=== PATIENT | male | born 1975 | race Caucasian/White ===

== ENCOUNTER 2018-09-20 23:42 | Inpatient (IN) | payer OTHER ==
[2018-09-21] MEDS ORDERED: NACL 0.9% 3 ML SYG IV (02:00)
[2018-09-21] MEDS ORDERED: LORAZEPAM 0.5 MG TAB PEG (02:00)
[2018-09-21] MEDS ORDERED: ONDANSETRON 4 MG INJ IV (02:00)
[2018-09-21] MEDS ORDERED: ALBUTEROL/IPRATROPIUM (NEB) 3 ML AMP HHN (02:00)
[2018-09-21] MEDS ORDERED: ACETAMINOPHEN 325 MG TAB PEG (02:00)
[2018-09-21] MEDS ORDERED: GLUCOSE GEL 15 GRAM TUBE PO ×2 (04:00)
[2018-09-21] MEDS ORDERED: GLUCAGON 1 MG INJ IM (04:00)
[2018-09-21] MEDS ORDERED: GLUCOSE GEL 15 GRAM TUBE BUCCAL (04:00)
[2018-09-21] MEDS ORDERED: DEXTROSE 50% 50 ML SYRINGE IV ×2 (04:00)
[2018-09-21] MEDS: SOD CHLORIDE 0.9% 1,000 ML IV (04:03)
[2018-09-21] MEDS: INSULIN ASPART [NOVOLOG] 3 ML PEN SC ×3 (06:00→17:52)
[2018-09-21] MEDS: LANSOPRAZOLE 30 MG CAP PEG ×2 (06:04→17:45)
[2018-09-21] MEDS: LEVOTHYROXINE 25 MCG TAB PEG (06:04)
[2018-09-21 06:05] LABS: ADD MAN DIFF? NO
[2018-09-21 06:19] LABS: BASOPHIL # 0.1 10^3/ul (0.0-0.1); BASOPHILS % 0.7 % (0.0-2.0); EOSINOPHILS # 0.4 10^3/ul (0.0-0.5); EOSINOPHILS % 4.1 % (0.0-7.0); HEMOGLOBIN 9.6 g/dl (14.0-18.0); LYMPHOCYTES # 2.4 10^3/ul (0.8-2.9); LYMPHOCYTES % 26.3 % (15.0-51.0); MEAN CORPUSCULAR HEMOGLOBIN 28.8 pg (29.0-33.0); MEAN CORPUSCULAR HGB CONC 33.1 g/dl (32.0-37.0); MEAN CORPUSCULAR VOLUME 87.1 fl (82.0-101.0); MEAN PLATELET VOLUME 9.6 fl (7.4-10.4); MONOCYTE # 1.1 10^3/ul (0.3-0.9); MONOCYTES % 11.4 % (0.0-11.0); NEUTROPHIL # 5.2 10^3/ul (1.6-7.5); NEUTROPHILS % 56.6 % (39.0-77.0); PLATELET COUNT 234 10^3/UL (140-415); RED BLOOD COUNT 3.33 10^6/ul (4.70-6.10); RED CELL DISTRIBUTION WIDTH 14.4 % (11.5-14.5)
[2018-09-21 06:19] LABS: WHITE BLOOD COUNT 9.2 10^3/ul (4.8-10.8)
[2018-09-21 06:41] LABS: ALANINE AMINOTRANSFERASE 25 IU/L (13-69); ALKALINE PHOSPHATASE 130 IU/L (42-121); ANION GAP 9 (5-13); ASPARTATE AMINO TRANSFERASE 12 IU/L (15-46); BILIRUBIN,INDIRECT 0.4 mg/dl (0-1.1); BILIRUBIN,TOTAL 0.4 mg/dl (0.2-1.3); BLOOD UREA NITROGEN 21 mg/dl (7-20); CALCIUM 8.6 mg/dl (8.4-10.2); CARBON DIOXIDE 28 mmol/L (21-31); CHLORIDE 110 mmol/L (97-110); CHOL/HDL RATIO 8.5 RATIO; CHOLESTEROL 102 mg/dl (100-200); CREATININE 1.09 mg/dl (0.61-1.24); Estimated GFR > 60 mL/min (>60); GLUCOSE 95 mg/dl (70-220); HDL CHOLESTEROL 12 mg/dl (27-67); LDL CHOLESTEROL,CALCULATED 49 mg/dl; MAGNESIUM 2.3 mg/dl (1.7-2.5); POTASSIUM 3.8 mmol/L (3.5-5.1); SODIUM 147 mmol/L (135-144); TOTAL PROTEIN 6.3 g/dl (6.1-8.1); TRIGLYCERIDES 205 mg/dl (0-149)
[2018-09-21 07:03] LABS: HEMOGLOBIN A1C 6.1 % (0-5.9)
[2018-09-21 08:06] LABS: ADD UMIC YES; UR ASCORBIC ACID 40 mg/dL (NEGATIVE); UR BACTERIA FEW /HPF (NONE SEEN); UR BILIRUBIN (Dip) NEGATIVE (NEGATIVE); UR BLOOD (Dip) NEGATIVE (NEGATIVE); UR CLARITY SLIGHTLY CLOUDY (CLEAR); UR COLOR YELLOW (YELLOW); UR GLUCOSE (Dip) 1+ mg/dL (NEGATIVE); UR KETONES (Dip) NEGATIVE (NEGATIVE); UR LEUKOCYTE ESTERASE (Dip) TRACE Leu/ul (NEGATIVE); UR NITRITE (Dip) NEGATIVE (NEGATIVE); UR RBC 12 /HPF (0-5); UR SPECIFIC GRAVITY (Dip) 1.017 (1.003-1.030); UR SQUAMOUS EPITHELIAL CELL FEW /HPF (FEW); UR TOTAL PROTEIN (Dip) 3+ mg/dl (NEGATIVE); UR UROBILINOGEN (Dip) NEGATIVE (NEGATIVE); UR WBC 35 /HPF (0-5)
[2018-09-21] MEDS: INSULIN GLARGINE [LANTus] (100 UNITS/ML) SYG SC (09:00)
[2018-09-21] MEDS ORDERED: INSULIN GLARGINE [LANtus] 3 ML PEN SC (09:00)
[2018-09-21] MEDS ORDERED: NON-FORMULARY/PATIENT OWN MED (Omeprazole* 20 MG) PEG (09:00)
[2018-09-21] MEDS: HEPARIN 5,000 UNIT/1 ML VIAL SC ×2 (09:00→21:25)
[2018-09-21] MEDS: MEROPENEM 1 GM/50 ML IVPB ×2 (09:15→21:10)
[2018-09-21] MEDS: AMLODIPINE 10 MG TAB PEG (09:17)
[2018-09-21] MEDS: POLYETHYLENE GLYCOL 17 GM PACKET PEG (09:17)
[2018-09-21] MEDS: LEVETIRACETAM (100 MG/ML) 5ML CUP PEG ×2 (09:17→21:10)
[2018-09-21] MEDS: traMADol 50 MG TAB PEG ×3 (09:18→21:13)
[2018-09-21] MEDS: ATORVASTATIN 10 MG TAB PEG (21:10)
[2018-09-22] MEDS: INSULIN ASPART [NOVOLOG] 3 ML PEN SC ×4 (01:09→17:55)
[2018-09-22] MEDS: ACCU-CHEK XX (02:00)
[2018-09-22] MEDS: LANSOPRAZOLE 30 MG CAP PEG (05:32)
[2018-09-22] MEDS: LEVOTHYROXINE 25 MCG TAB PEG (06:47)
[2018-09-22] MEDS: HEPARIN 5,000 UNIT/1 ML VIAL SC (09:00)
[2018-09-22] MEDS: POLYETHYLENE GLYCOL 17 GM PACKET PEG (09:00)
[2018-09-22] MEDS: INSULIN GLARGINE [LANTus] (100 UNITS/ML) SYG SC (09:00)
[2018-09-22] MEDS: traMADol 50 MG TAB PEG ×3 (09:07→20:38)
[2018-09-22] MEDS: AMLODIPINE 10 MG TAB PEG (09:07)
[2018-09-22] MEDS: LEVETIRACETAM (100 MG/ML) 5ML CUP PEG ×2 (09:08→20:38)
[2018-09-22] MEDS: MEROPENEM 1 GM/50 ML IVPB ×2 (09:09→20:38)
[2018-09-22 12:36] LABS: ADD MAN DIFF? NO; BASOPHIL # 0.1 10^3/ul (0.0-0.1); EOSINOPHILS # 0.6 10^3/ul (0.0-0.5); EOSINOPHILS % 6.7 % (0.0-7.0); HEMATOCRIT 34.2 % (42.0-52.0); HEMOGLOBIN 10.9 g/dl (14.0-18.0); LYMPHOCYTES # 2.1 10^3/ul (0.8-2.9); LYMPHOCYTES % 21.9 % (15.0-51.0); MEAN CORPUSCULAR HEMOGLOBIN 28.6 pg (29.0-33.0); MEAN CORPUSCULAR HGB CONC 31.9 g/dl (32.0-37.0); MEAN CORPUSCULAR VOLUME 89.8 fl (82.0-101.0); MEAN PLATELET VOLUME 9.3 fl (7.4-10.4); MONOCYTE # 1.1 10^3/ul (0.3-0.9); MONOCYTES % 11.7 % (0.0-11.0); NEUTROPHIL # 5.5 10^3/ul (1.6-7.5); NEUTROPHILS % 57.7 % (39.0-77.0); PLATELET COUNT 252 10^3/UL (140-415); RED BLOOD COUNT 3.81 10^6/ul (4.70-6.10); RED CELL DISTRIBUTION WIDTH 14.6 % (11.5-14.5)
[2018-09-22 12:36] LABS: WHITE BLOOD COUNT 9.6 10^3/ul (4.8-10.8)
[2018-09-22 12:55] LABS: INR 0.88; PT RATIO 0.9
[2018-09-22 12:56] LABS: ALANINE AMINOTRANSFERASE 40 IU/L (13-69); ALBUMIN 3.3 g/dl (3.3-4.9); ALBUMIN/GLOBULIN RATIO 0.86; ALKALINE PHOSPHATASE 177 IU/L (42-121); ANION GAP 5 (5-13); ASPARTATE AMINO TRANSFERASE 16 IU/L (15-46); BILIRUBIN,INDIRECT 0.2 mg/dl (0-1.1); BILIRUBIN,TOTAL 0.2 mg/dl (0.2-1.3); BLOOD UREA NITROGEN 25 mg/dl (7-20); CALCIUM 8.7 mg/dl (8.4-10.2); CARBON DIOXIDE 31 mmol/L (21-31); CHLORIDE 107 mmol/L (97-110); CREATININE 0.96 mg/dl (0.61-1.24); Estimated GFR > 60 mL/min (>60); GLUCOSE 198 mg/dl (70-220); POTASSIUM 4.1 mmol/L (3.5-5.1); SODIUM 143 mmol/L (135-144); TOTAL PROTEIN 7.1 g/dl (6.1-8.1)
[2018-09-22 15:13] LABS: FOLATE > 20.0 ng/ml (2.8-20.0)
[2018-09-22 16:45] LABS: ANION GAP 6 (5-13); BLOOD UREA NITROGEN 24 mg/dl (7-20); CALCIUM 8.7 mg/dl (8.4-10.2); CARBON DIOXIDE 31 mmol/L (21-31); CHLORIDE 106 mmol/L (97-110); CREATININE 0.98 mg/dl (0.61-1.24); Estimated GFR > 60 mL/min (>60); GLUCOSE 157 mg/dl (70-220); MAGNESIUM 2.1 mg/dl (1.7-2.5); PHOSPHORUS 3.9 mg/dl (2.5-4.9); POTASSIUM 4.1 mmol/L (3.5-5.1); SODIUM 143 mmol/L (135-144)
[2018-09-22] MEDS: LACTOBACILLUS RHAMNOSUS CAP PO (20:38)
[2018-09-22] MEDS: ATORVASTATIN 10 MG TAB PEG (20:38)
[2018-09-23] MEDS: INSULIN ASPART [NOVOLOG] 3 ML PEN SC ×4 (00:41→17:26)
[2018-09-23] MEDS: ACCU-CHEK XX (02:00)
[2018-09-23] MEDS: LANSOPRAZOLE 30 MG CAP PEG (06:16)
[2018-09-23] MEDS: LEVOTHYROXINE 25 MCG TAB PEG (06:16)
[2018-09-23] MEDS: LACTOBACILLUS RHAMNOSUS CAP PO ×2 (08:28→21:21)
[2018-09-23] MEDS: LEVETIRACETAM (100 MG/ML) 5ML CUP PEG ×2 (08:28→21:21)
[2018-09-23] MEDS: POLYETHYLENE GLYCOL 17 GM PACKET PEG (08:28)
[2018-09-23] MEDS: ENOXAPARIN 40 MG/0.4 ML SYG SC (08:29)
[2018-09-23] MEDS: INSULIN GLARGINE [LANTus] (100 UNITS/ML) SYG SC (08:29)
[2018-09-23] MEDS: traMADol 50 MG TAB PEG ×3 (08:30→21:22)
[2018-09-23] MEDS: AMLODIPINE 10 MG TAB PEG (08:31)
[2018-09-23] MEDS: MEROPENEM 1 GM/50 ML IVPB (08:38)
[2018-09-23] MEDS: ATORVASTATIN 10 MG TAB PEG (21:21)
[2018-09-23] MEDS: MEROPENEM 1 GM/50ML(PMX) 50 ML IVPB (21:23)
[2018-09-24] MEDS: INSULIN ASPART [NOVOLOG] 3 ML PEN SC ×4 (00:22→18:00)
[2018-09-24] MEDS: ACCU-CHEK XX (02:00)
[2018-09-24] MEDS: LEVOTHYROXINE 25 MCG TAB PEG (05:39)
[2018-09-24] MEDS: LANSOPRAZOLE 30 MG CAP PEG (05:39)
[2018-09-24 06:11] LABS: ADD MAN DIFF? NO
[2018-09-24 06:18] LABS: BASOPHIL # 0.1 10^3/ul (0.0-0.1); BASOPHILS % 1.1 % (0.0-2.0); EOSINOPHILS # 0.7 10^3/ul (0.0-0.5); EOSINOPHILS % 5.9 % (0.0-7.0); HEMATOCRIT 35.4 % (42.0-52.0); HEMOGLOBIN 11.6 g/dl (14.0-18.0); LYMPHOCYTES % 25.2 % (15.0-51.0); MEAN CORPUSCULAR HEMOGLOBIN 28.5 pg (29.0-33.0); MEAN CORPUSCULAR HGB CONC 32.8 g/dl (32.0-37.0); MEAN PLATELET VOLUME 9.1 fl (7.4-10.4); MONOCYTE # 1.2 10^3/ul (0.3-0.9); NEUTROPHIL # 6.7 10^3/ul (1.6-7.5); NEUTROPHILS % 56.2 % (39.0-77.0); PLATELET COUNT 294 10^3/UL (140-415); RED BLOOD COUNT 4.07 10^6/ul (4.70-6.10); RED CELL DISTRIBUTION WIDTH 14.2 % (11.5-14.5)
[2018-09-24 06:18] LABS: WHITE BLOOD COUNT 11.9 10^3/ul (4.8-10.8)
[2018-09-24 06:49] LABS: ALANINE AMINOTRANSFERASE 30 IU/L (13-69); ALBUMIN 3.4 g/dl (3.3-4.9); ALBUMIN/GLOBULIN RATIO 0.97; ALKALINE PHOSPHATASE 166 IU/L (42-121); ANION GAP 9 (5-13); ASPARTATE AMINO TRANSFERASE 14 IU/L (15-46); BILIRUBIN,INDIRECT 0.3 mg/dl (0-1.1); BILIRUBIN,TOTAL 0.3 mg/dl (0.2-1.3); BLOOD UREA NITROGEN 29 mg/dl (7-20); CALCIUM 8.9 mg/dl (8.4-10.2); CARBON DIOXIDE 32 mmol/L (21-31); CHLORIDE 100 mmol/L (97-110); CREATININE 0.99 mg/dl (0.61-1.24); Estimated GFR > 60 mL/min (>60); GLUCOSE 174 mg/dl (70-220); MAGNESIUM 1.9 mg/dl (1.7-2.5); PHOSPHORUS 4.2 mg/dl (2.5-4.9); POTASSIUM 4.2 mmol/L (3.5-5.1); SODIUM 141 mmol/L (135-144); TOTAL PROTEIN 6.9 g/dl (6.1-8.1)
[2018-09-24] MEDS: LEVETIRACETAM (100 MG/ML) 5ML CUP PEG ×2 (09:08→20:27)
[2018-09-24] MEDS: INSULIN GLARGINE [LANTus] (100 UNITS/ML) SYG SC (09:08)
[2018-09-24] MEDS: ENOXAPARIN 40 MG/0.4 ML SYG SC (09:08)
[2018-09-24] MEDS: POLYETHYLENE GLYCOL 17 GM PACKET PEG (09:09)
[2018-09-24] MEDS: AMLODIPINE 10 MG TAB PEG (09:09)
[2018-09-24] MEDS: LACTOBACILLUS RHAMNOSUS CAP PO ×2 (09:09→20:27)
[2018-09-24] MEDS: traMADol 50 MG TAB PEG ×3 (09:09→20:28)
[2018-09-24] MEDS: MEROPENEM 1 GM/50ML(PMX) 50 ML IVPB ×2 (09:10→20:26)
[2018-09-24] MEDS: ATORVASTATIN 10 MG TAB PEG (20:28)
[2018-09-25] MEDS: INSULIN ASPART [NOVOLOG] 3 ML PEN SC ×4 (00:23→18:20)
[2018-09-25] MEDS: ACCU-CHEK XX (02:00)
[2018-09-25] MEDS: LANSOPRAZOLE 30 MG CAP PEG (05:58)
[2018-09-25] MEDS: LEVOTHYROXINE 25 MCG TAB PEG (06:00)
[2018-09-25] MEDS: LEVETIRACETAM (100 MG/ML) 5ML CUP PEG ×2 (08:45→21:26)
[2018-09-25] MEDS: MEROPENEM 1 GM/50ML(PMX) 50 ML IVPB (08:45)
[2018-09-25] MEDS: POLYETHYLENE GLYCOL 17 GM PACKET PEG (08:45)
[2018-09-25] MEDS: LACTOBACILLUS RHAMNOSUS CAP PO ×2 (08:46→21:27)
[2018-09-25] MEDS: traMADol 50 MG TAB PEG ×3 (08:47→21:26)
[2018-09-25] MEDS: AMLODIPINE 10 MG TAB PEG (08:48)
[2018-09-25] MEDS: ENOXAPARIN 40 MG/0.4 ML SYG SC (08:48)
[2018-09-25] MEDS: INSULIN GLARGINE [LANTus] (100 UNITS/ML) SYG SC (09:16)
[2018-09-25 09:29] LABS: ADD MAN DIFF? NO
[2018-09-25 09:40] LABS: BASOPHIL # 0.1 10^3/ul (0.0-0.1); BASOPHILS % 0.8 % (0.0-2.0); EOSINOPHILS # 0.6 10^3/ul (0.0-0.5); HEMATOCRIT 37.8 % (42.0-52.0); HEMOGLOBIN 12.6 g/dl (14.0-18.0); LYMPHOCYTES # 3.2 10^3/ul (0.8-2.9); LYMPHOCYTES % 25.4 % (15.0-51.0); MEAN CORPUSCULAR HEMOGLOBIN 28.9 pg (29.0-33.0); MEAN CORPUSCULAR HGB CONC 33.3 g/dl (32.0-37.0); MEAN CORPUSCULAR VOLUME 86.7 fl (82.0-101.0); MEAN PLATELET VOLUME 9.1 fl (7.4-10.4); MONOCYTE # 0.8 10^3/ul (0.3-0.9); MONOCYTES % 6.6 % (0.0-11.0); NEUTROPHIL # 7.6 10^3/ul (1.6-7.5); NEUTROPHILS % 60.8 % (39.0-77.0); PLATELET COUNT 320 10^3/UL (140-415); RED BLOOD COUNT 4.36 10^6/ul (4.70-6.10)
[2018-09-25 09:40] LABS: WHITE BLOOD COUNT 12.5 10^3/ul (4.8-10.8)
[2018-09-25 09:54] LABS: ANION GAP 10 (5-13); BLOOD UREA NITROGEN 31 mg/dl (7-20); CALCIUM 9.3 mg/dl (8.4-10.2); CARBON DIOXIDE 30 mmol/L (21-31); CHLORIDE 100 mmol/L (97-110); CREATININE 1.02 mg/dl (0.61-1.24); Estimated GFR > 60 mL/min (>60); GLUCOSE 156 mg/dl (70-220); POTASSIUM 4.6 mmol/L (3.5-5.1); SODIUM 140 mmol/L (135-144)
[2018-09-25] MEDS: CIPROFLOXACIN 500 MG TAB PO (18:21)
[2018-09-25] MEDS: ATORVASTATIN 10 MG TAB PEG (21:26)
[2018-09-25] MEDS: DOXYCYCLINE 100 MG TAB PO (21:27)
[2018-09-26] MEDS: INSULIN ASPART [NOVOLOG] 3 ML PEN SC ×4 (01:35→17:38)
[2018-09-26] MEDS: ACCU-CHEK XX (01:37)
[2018-09-26] MEDS: CIPROFLOXACIN 500 MG TAB PO ×2 (05:26→17:28)
[2018-09-26] MEDS: LANSOPRAZOLE 30 MG CAP PEG (06:25)
[2018-09-26] MEDS: LEVOTHYROXINE 25 MCG TAB PEG (06:25)
[2018-09-26] MEDS: DOXYCYCLINE 100 MG TAB PO ×2 (08:49→20:33)
[2018-09-26] MEDS: LACTOBACILLUS RHAMNOSUS CAP PO ×2 (08:49→20:33)
[2018-09-26] MEDS: traMADol 50 MG TAB PEG ×3 (08:49→20:33)
[2018-09-26] MEDS: POLYETHYLENE GLYCOL 17 GM PACKET PEG (08:49)
[2018-09-26] MEDS: AMLODIPINE 10 MG TAB PEG (08:50)
[2018-09-26] MEDS: INSULIN GLARGINE [LANTus] (100 UNITS/ML) SYG SC (08:51)
[2018-09-26] MEDS: ENOXAPARIN 40 MG/0.4 ML SYG SC (08:51)
[2018-09-26] MEDS: LEVETIRACETAM (100 MG/ML) 5ML CUP PEG ×2 (08:57→20:33)
[2018-09-26] MEDS: ATORVASTATIN 10 MG TAB PEG (20:33)
[2018-09-27] MEDS: INSULIN ASPART [NOVOLOG] 3 ML PEN SC ×5 (00:38→23:52)
[2018-09-27] MEDS: ACCU-CHEK XX (01:02)
[2018-09-27] MEDS: LANSOPRAZOLE 30 MG CAP PEG (06:13)
[2018-09-27] MEDS: CIPROFLOXACIN 500 MG TAB PO ×2 (06:13→17:58)
[2018-09-27] MEDS: LEVOTHYROXINE 25 MCG TAB PEG (06:13)
[2018-09-27] MEDS: ENOXAPARIN 40 MG/0.4 ML SYG SC (09:00)
[2018-09-27] MEDS: POLYETHYLENE GLYCOL 17 GM PACKET PEG (09:45)
[2018-09-27] MEDS: traMADol 50 MG TAB PEG ×3 (09:45→20:28)
[2018-09-27] MEDS: LEVETIRACETAM (100 MG/ML) 5ML CUP PEG ×2 (09:45→20:27)
[2018-09-27] MEDS: DOXYCYCLINE 100 MG TAB PO ×2 (09:46→20:27)
[2018-09-27] MEDS: AMLODIPINE 10 MG TAB PEG (09:46)
[2018-09-27] MEDS: LACTOBACILLUS RHAMNOSUS CAP PO ×2 (09:46→20:27)
[2018-09-27] MEDS: INSULIN GLARGINE [LANTus] (100 UNITS/ML) SYG SC (09:51)
[2018-09-27] MEDS: ATORVASTATIN 10 MG TAB PEG (20:27)
[2018-09-28] MEDS: ACCU-CHEK XX (01:50)
[2018-09-28] MEDS: LANSOPRAZOLE 30 MG CAP PEG (06:03)
[2018-09-28] MEDS: CIPROFLOXACIN 500 MG TAB PO ×2 (06:03→17:31)
[2018-09-28] MEDS: LEVOTHYROXINE 25 MCG TAB PEG (06:03)
[2018-09-28] MEDS: INSULIN ASPART [NOVOLOG] 3 ML PEN SC ×3 (06:04→17:32)
[2018-09-28] MEDS: LACTOBACILLUS RHAMNOSUS CAP PO ×2 (08:14→20:34)
[2018-09-28] MEDS: LEVETIRACETAM (100 MG/ML) 5ML CUP PEG ×2 (08:14→20:45)
[2018-09-28] MEDS: POLYETHYLENE GLYCOL 17 GM PACKET PEG (08:15)
[2018-09-28] MEDS: INSULIN GLARGINE [LANTus] (100 UNITS/ML) SYG SC (08:15)
[2018-09-28] MEDS: DOXYCYCLINE 100 MG TAB PO ×2 (08:15→20:35)
[2018-09-28] MEDS: AMLODIPINE 10 MG TAB PEG (08:16)
[2018-09-28] MEDS: traMADol 50 MG TAB PEG ×3 (08:17→20:35)
[2018-09-28] MEDS: ENOXAPARIN 40 MG/0.4 ML SYG SC (08:18)
[2018-09-28] MEDS: ATORVASTATIN 10 MG TAB PEG (20:37)
[2018-09-29] MEDS: ACCU-CHEK XX (02:00)
[2018-09-29] MEDS: CIPROFLOXACIN 500 MG TAB PO ×2 (05:33→17:21)
[2018-09-29] MEDS: LANSOPRAZOLE 30 MG CAP PEG (05:33)
[2018-09-29] MEDS: LEVOTHYROXINE 25 MCG TAB PEG (05:33)
[2018-09-29] MEDS: INSULIN ASPART [NOVOLOG] 3 ML PEN SC ×4 (05:37→17:26)
[2018-09-29] MEDS: traMADol 50 MG TAB PEG ×3 (08:28→21:07)
[2018-09-29] MEDS: LEVETIRACETAM (100 MG/ML) 5ML CUP PEG ×2 (08:28→21:06)
[2018-09-29] MEDS: DOXYCYCLINE 100 MG TAB PO ×2 (08:29→21:07)
[2018-09-29] MEDS: LACTOBACILLUS RHAMNOSUS CAP PO ×2 (08:29→21:07)
[2018-09-29] MEDS: POLYETHYLENE GLYCOL 17 GM PACKET PEG (08:29)
[2018-09-29] MEDS: AMLODIPINE 10 MG TAB PEG (08:30)
[2018-09-29] MEDS: INSULIN GLARGINE [LANTus] (100 UNITS/ML) SYG SC (08:32)
[2018-09-29] MEDS: ENOXAPARIN 40 MG/0.4 ML SYG SC (08:34)
[2018-09-29] MEDS: LACTULOSE 30ML CUP GTB (17:22)
[2018-09-29] MEDS: ATORVASTATIN 10 MG TAB PEG (21:06)
[2018-09-30] MEDS: ACCU-CHEK XX (02:00)
[2018-09-30] MEDS: LANSOPRAZOLE 30 MG CAP PEG (05:47)
[2018-09-30] MEDS: CIPROFLOXACIN 500 MG TAB PO (05:47)
[2018-09-30] MEDS: INSULIN ASPART [NOVOLOG] 3 ML PEN SC ×4 (06:00→17:58)
[2018-09-30] MEDS: ENOXAPARIN 40 MG/0.4 ML SYG SC (08:30)
[2018-09-30] MEDS: LEVETIRACETAM (100 MG/ML) 5ML CUP PEG ×2 (08:31→20:49)
[2018-09-30] MEDS: LEVOTHYROXINE 25 MCG TAB PEG (08:31)
[2018-09-30] MEDS: LACTOBACILLUS RHAMNOSUS CAP PO ×2 (08:31→20:49)
[2018-09-30] MEDS: POLYETHYLENE GLYCOL 17 GM PACKET PEG (08:31)
[2018-09-30] MEDS: INSULIN GLARGINE [LANTus] (100 UNITS/ML) SYG SC (08:31)
[2018-09-30] MEDS: AMLODIPINE 10 MG TAB PEG (08:31)
[2018-09-30] MEDS: DOXYCYCLINE 100 MG TAB PO (08:32)
[2018-09-30] MEDS: traMADol 50 MG TAB PEG ×3 (08:32→20:49)
[2018-09-30] MEDS: ATORVASTATIN 10 MG TAB PEG (20:49)
[2018-10-01] MEDS: INSULIN ASPART [NOVOLOG] 3 ML PEN SC ×6 (00:46→23:55)
[2018-10-01] MEDS: ACCU-CHEK XX (02:33)
[2018-10-01] MEDS: LANSOPRAZOLE 30 MG CAP PEG (05:51)
[2018-10-01] MEDS: POLYETHYLENE GLYCOL 17 GM PACKET PEG (09:26)
[2018-10-01] MEDS: LEVETIRACETAM (100 MG/ML) 5ML CUP PEG ×2 (09:26→20:47)
[2018-10-01] MEDS: LEVOTHYROXINE 25 MCG TAB PEG (09:26)
[2018-10-01] MEDS: AMLODIPINE 10 MG TAB PEG (09:27)
[2018-10-01] MEDS: LACTOBACILLUS RHAMNOSUS CAP PO ×2 (09:27→20:47)
[2018-10-01] MEDS: traMADol 50 MG TAB PEG ×3 (09:27→20:47)
[2018-10-01] MEDS: ENOXAPARIN 40 MG/0.4 ML SYG SC (09:36)
[2018-10-01] MEDS: INSULIN GLARGINE [LANTus] (100 UNITS/ML) SYG SC (09:38)
[2018-10-01] MEDS: DOCUSATE SODIUM 10 MG/ML (10ML CUP) GTB (20:46)
[2018-10-01] MEDS: ATORVASTATIN 10 MG TAB PEG (20:47)
[2018-10-02] MEDS: ACCU-CHEK XX (02:00)
[2018-10-02] MEDS: MAGNESIUM HYDROXIDE 30ML CUP PO (05:07)
[2018-10-02] MEDS: LEVOTHYROXINE 25 MCG TAB PEG (05:07)
[2018-10-02] MEDS: LANSOPRAZOLE 30 MG CAP PEG (05:07)
[2018-10-02] MEDS: INSULIN ASPART [NOVOLOG] 3 ML PEN SC ×4 (05:09→17:16)
[2018-10-02] MEDS: ENOXAPARIN 40 MG/0.4 ML SYG SC (08:48)
[2018-10-02] MEDS: POLYETHYLENE GLYCOL 17 GM PACKET PEG (08:52)
[2018-10-02] MEDS: DOCUSATE SODIUM 10 MG/ML (10ML CUP) GTB (08:53)
[2018-10-02] MEDS: traMADol 50 MG TAB PEG ×2 (08:53→12:19)
[2018-10-02] MEDS: LACTOBACILLUS RHAMNOSUS CAP PO (08:53)
[2018-10-02] MEDS: LEVETIRACETAM (100 MG/ML) 5ML CUP PEG (08:53)
[2018-10-02] MEDS: AMLODIPINE 10 MG TAB PEG (08:54)
[2018-10-02] MEDS: INSULIN GLARGINE [LANTus] (100 UNITS/ML) SYG SC (09:00)
== END 2018-10-02 20:39 | DRG 871 ==
LOC: PP2 09-22 22:05 → TEL 23:42 → PP2 09-22 22:05
DX: A41.9 Sepsis, unspecified organism (principal); R53.2 Functional quadriplegia; J69.0 Pneumonitis due to inhalation of food and vomit; E46 Unspecified protein-calorie malnutrition; J96.10 Chronic respiratory failure, unspecified whether with hypoxia or hypercapnia; G93.49 Other encephalopathy; Z68.30 Body mass index [BMI] 30.0-30.9, adult; Z93.0 Tracheostomy status; E11.9 Type 2 diabetes mellitus without complications; E86.0 Dehydration; L89.312 Pressure ulcer of right buttock, stage 2; B96.5 Pseudomonas (aeruginosa) (mallei) (pseudomallei) as the cause of diseases classified elsewhere; B95.62 Methicillin resistant Staphylococcus aureus infection as the cause of diseases classified elsewhere; R13.10 Dysphagia, unspecified
CPT/HCPCS: 71045; 80048; 80053; 80061; 81001; 82306; 82607; 82746; 82962; 83036; 83735; 84100; 84443; 85025; 85610; 87040-91; 87070; 87086; 93970; 97161

== ENCOUNTER 2018-10-18 13:13 | Inpatient (IN) | payer OTHER ==
[2018-10-18 14:02] LABS: AADO2 Venous 634.1 mmHg; MODE MASK - NRB; MetHgb Venous 0.2 %; Site VENOUS LINE; Venous Fraction OxyHgb 54.8 %; Venous Oxygen Sat 55.5 mmHG (55.0-75.0); Venous Total Hemglobin 17.3 g/dl
[2018-10-18] MEDS: CEFEPIME 2GM/50 ML (PMX) 50 ML IVPB ×2 (14:03→22:05)
[2018-10-18] MEDS: ACETAMINOPHEN 650 MG SUPP PR (14:03)
[2018-10-18] MEDS: SODIUM CHLORIDE 0.9% 1L BAG IV* (14:03)
[2018-10-18 14:04] LABS: ADD MAN DIFF? NO
[2018-10-18 14:06] LABS: WHITE BLOOD COUNT 20.1 10^3/ul (4.8-10.8)
[2018-10-18 14:06] LABS: BASOPHIL # 0.1 10^3/ul (0.0-0.1); BASOPHILS % 0.4 % (0.0-2.0); HEMATOCRIT 51.2 % (42.0-52.0); HEMOGLOBIN 16.1 g/dl (14.0-18.0); LYMPHOCYTES # 1.7 10^3/ul (0.8-2.9); LYMPHOCYTES % 8.4 % (15.0-51.0); MEAN CORPUSCULAR HEMOGLOBIN 29.3 pg (29.0-33.0); MEAN CORPUSCULAR HGB CONC 31.4 g/dl (32.0-37.0); MEAN CORPUSCULAR VOLUME 93.1 fl (82.0-101.0); MONOCYTE # 0.9 10^3/ul (0.3-0.9); MONOCYTES % 4.5 % (0.0-11.0); NEUTROPHIL # 17.3 10^3/ul (1.6-7.5); NEUTROPHILS % 86.2 % (39.0-77.0); NUCLEATED RED BLOOD CELLS% 0.1 /100WBC (0.0-0.0); PLATELET COUNT 195 10^3/UL (140-415); RED CELL DISTRIBUTION WIDTH 17.7 % (11.5-14.5)
[2018-10-18 14:26] LABS: INR 1.02; PROTIME 13.5 Sec (11.9-14.9); PT RATIO 1.1
[2018-10-18 14:27] LABS: PARTIAL THROMBOPLASTIN TIME 26.6 Sec (23.0-35.0)
[2018-10-18] MEDS: ACETAMINOPHEN 325 MG TAB GTB (15:22)
[2018-10-18] MEDS: VANCOMYCIN 1 GM (PMX) 250 ML IVPB (15:24)
[2018-10-18 15:47] LABS: ANION GAP 7 (5-13); Estimated GFR > 60 mL/min (>60)
[2018-10-18 15:57] LABS: ADD UMIC YES; UR ASCORBIC ACID 40 mg/dL (NEGATIVE); UR BACTERIA MANY /HPF (NONE SEEN); UR BILIRUBIN (Dip) 1+ mg/dL (NEGATIVE); UR BLOOD (Dip) NEGATIVE (NEGATIVE); UR CLARITY TURBID (CLEAR); UR COLOR YELLOW (YELLOW); UR GLUCOSE (Dip) 2+ mg/dL (NEGATIVE); UR KETONES (Dip) TRACE mg/dL (NEGATIVE); UR LEUKOCYTE ESTERASE (Dip) 2+ Leu/ul (NEGATIVE); UR MUCUS FEW /HPF (NONE SEEN); UR NITRITE (Dip) NEGATIVE (NEGATIVE); UR RBC 1 /HPF (0-5); UR SPECIFIC GRAVITY (Dip) 1.026 (1.003-1.030); UR TOTAL PROTEIN (Dip) 3+ mg/dl (NEGATIVE); UR UROBILINOGEN (Dip) 1+ mg/dL (NEGATIVE); UR WBC > 182 /HPF (0-5)
[2018-10-18 16:05] LABS: ALANINE AMINOTRANSFERASE 16 IU/L (13-69); ALBUMIN/GLOBULIN RATIO 0.93; ALKALINE PHOSPHATASE 59 IU/L (42-121); ASPARTATE AMINO TRANSFERASE 23 IU/L (15-46); BILIRUBIN,INDIRECT 0.3 mg/dl (0-1.1); BILIRUBIN,TOTAL 0.3 mg/dl (0.2-1.3); BLOOD UREA NITROGEN 12 mg/dl (7-20); CARBON DIOXIDE 29 mmol/L (21-31); CHLORIDE 98 mmol/L (97-110); CREATININE 0.66 mg/dl (0.61-1.24); GLUCOSE 115 mg/dl (70-220); POTASSIUM 4.1 mmol/L (3.5-5.1); SODIUM 134 mmol/L (135-144); TOTAL PROTEIN 6.2 g/dl (6.1-8.1); TROPONIN-I 0.026 ng/ml (0.000-0.120)
[2018-10-18 16:15] LABS: CALCIUM 14.9 mg/dl (8.4-10.2)
[2018-10-18 16:21] LABS: AADO2 Arterial 453.6 mmHg (7.0-24.0); Allen Test ACCEPTAB; Arterial Base Excess 2.1 mmol/L (-3.0-3); Arterial Blood Gas Oxygen Sat 94.2 mmHG (95.0-98.0); Arterial COHb 0 % (0.0-3.0); Arterial Fraction of Oxyhgb 93.8 % (93.0-99.0); Arterial HCO3 27.2 mmol/L (22.0-26.0); Arterial MetHb 0.4 % (0.0-1.5); Arterial pCO2 44.4 mmhg (35-45); MODE MASK - NRB; Site Left Radial
[2018-10-18] MEDS: NORepinephrine 8MG/250 ML (PMX 250 ML IV (16:50)
[2018-10-18 17:53] LABS: LACTIC ACID 1.9 mmol/L (0.5-2.0)
[2018-10-18] MEDS ORDERED: MAGNESIUM HYDROXIDE 30ML CUP PO (18:30)
[2018-10-18] MEDS ORDERED: ONDANSETRON 4 MG INJ IV (18:30)
[2018-10-18] MEDS ORDERED: ACETAMINOPHEN 325 MG TAB PO (18:30)
[2018-10-18] MEDS ORDERED: HYDROCODONE/APAP (5/325) TAB PO (18:30)
[2018-10-18] MEDS ORDERED: NITROGLYCERIN (SL) 0.4 MG TAB SL (18:30)
[2018-10-18] MEDS ORDERED: ALBUTEROL/IPRATROPIUM (NEB) 3 ML AMP HHN (18:30)
[2018-10-18] MEDS ORDERED: NACL 0.9% 3 ML SYG IV (18:30)
[2018-10-18] MEDS ORDERED: hydrALAzine 20 MG INJ IV (18:30)
[2018-10-18] MEDS ORDERED: VANCOMYCIN IV PER PHARMACY XX (18:30)
[2018-10-18] MEDS ORDERED: CHOLECALCIFEROL 50000 UNIT GTB (18:30)
[2018-10-18] MEDS ORDERED: DOCUSATE SODIUM 100 MG CAP PO (18:30)
[2018-10-18] MEDS ORDERED: morphine 2 MG INJ IV (18:30)
[2018-10-18] MEDS: SOD CHLORIDE 0.9% 1,000 ML IV (19:31)
[2018-10-18 20:01] LABS: HEMOGLOBIN A1C 7.6 % (0-5.9)
[2018-10-18 20:13] LABS: FREE T4 (FREE THYROXINE) 0.84 ng/dl (0.64-1.79)
[2018-10-18] MEDS: VANCOMYCIN 1.25 GM/NS 250 ML 250 ML IVPB (20:31)
[2018-10-18] MEDS: INSULIN ASPART [NOVOLOG] 3 ML PEN SC (20:56)
[2018-10-18] MEDS: LANSOPRAZOLE 30 MG CAP GTB (20:59)
[2018-10-18] MEDS: ATORVASTATIN 10 MG TAB GTB (20:59)
[2018-10-18] MEDS ORDERED: LEVETIRACETAM 500 MG TAB GTB (21:00)
[2018-10-18] MEDS: LEVETIRACETAM (100 MG/ML) 5ML CUP GTB (21:13)
[2018-10-18 22:46] LABS: LACTIC ACID 2.3 mmol/L (0.5-2.0)
[2018-10-19] MEDS: INSULIN ASPART [NOVOLOG] 3 ML PEN SC ×6 (01:00→21:03)
[2018-10-19 02:41] LABS: ADD MAN DIFF? NO
[2018-10-19 02:43] LABS: BASOPHIL # 0.1 10^3/ul (0.0-0.1); BASOPHILS % 0.3 % (0.0-2.0); EOSINOPHILS # 0.1 10^3/ul (0.0-0.5); EOSINOPHILS % 0.4 % (0.0-7.0); HEMATOCRIT 40.2 % (42.0-52.0); HEMOGLOBIN 12.4 g/dl (14.0-18.0); LYMPHOCYTES # 1.9 10^3/ul (0.8-2.9); LYMPHOCYTES % 9.4 % (15.0-51.0); MEAN CORPUSCULAR HEMOGLOBIN 29.7 pg (29.0-33.0); MEAN CORPUSCULAR HGB CONC 30.8 g/dl (32.0-37.0); MEAN CORPUSCULAR VOLUME 96.2 fl (82.0-101.0); MEAN PLATELET VOLUME 11.9 fl (7.4-10.4); MONOCYTE # 0.8 10^3/ul (0.3-0.9); MONOCYTES % 3.8 % (0.0-11.0); NEUTROPHIL # 17.4 10^3/ul (1.6-7.5); NEUTROPHILS % 85.6 % (39.0-77.0); NUCLEATED RED BLOOD CELLS% 0.1 /100WBC (0.0-0.0); PLATELET COUNT 136 10^3/UL (140-415); RED BLOOD COUNT 4.18 10^6/ul (4.70-6.10); RED CELL DISTRIBUTION WIDTH 17.1 % (11.5-14.5)
[2018-10-19 02:43] LABS: WHITE BLOOD COUNT 20.4 10^3/ul (4.8-10.8)
[2018-10-19 02:53] LABS: HEMOGLOBIN A1C 7.6 % (0-5.9)
[2018-10-19 03:00] LABS: LACTIC ACID 1.8 mmol/L (0.5-2.0)
[2018-10-19 03:05] LABS: ANION GAP 8 (5-13); BLOOD UREA NITROGEN 99 mg/dl (7-20); CALCIUM 7.2 mg/dl (8.4-10.2); CARBON DIOXIDE 28 mmol/L (21-31); CHLORIDE 123 mmol/L (97-110); CHOL/HDL RATIO 7.3 RATIO; CREATININE 2.16 mg/dl (0.61-1.24); Estimated GFR 33 mL/min (>60); GLUCOSE 349 mg/dl (70-220); HDL CHOLESTEROL 16 mg/dl (27-67); LDL CHOLESTEROL,CALCULATED 46 mg/dl; MAGNESIUM 2.5 mg/dl (1.7-2.5); PHOSPHORUS 3.6 mg/dl (2.5-4.9); POTASSIUM 3.3 mmol/L (3.5-5.1); SODIUM 159 mmol/L (135-144); TRIGLYCERIDES 278 mg/dl (0-149)
[2018-10-19 03:05] LABS: CHOLESTEROL 118 mg/dl (100-200)
[2018-10-19 03:35] LABS: THYROID STIMULATING HORMONE 0.393 MIU/L (0.465-4.680)
[2018-10-19] MEDS: SOD CHLORIDE 0.9% 1,000 ML IV (03:57)
[2018-10-19] MEDS: ACCU-CHEK XX (05:35)
[2018-10-19] MEDS: CEFEPIME 2GM/50 ML (PMX) 50 ML IVPB ×2 (05:36→20:58)
[2018-10-19] MEDS: VANCOMYCIN 1.25 GM/NS 250 ML 250 ML IVPB (05:36)
[2018-10-19] MEDS: LEVOTHYROXINE 25 MCG TAB GTB (07:00)
[2018-10-19 07:32] LABS: LACTIC ACID 1.8 mmol/L (0.5-2.0)
[2018-10-19] MEDS: LEVETIRACETAM (100 MG/ML) 5ML CUP GTB ×2 (08:22→20:57)
[2018-10-19] MEDS: MULTIVITAMINS 30 ML CUP GTB (08:22)
[2018-10-19] MEDS: LACTOBACILLUS RHAMNOSUS CAP GTB (08:22)
[2018-10-19] MEDS: LANSOPRAZOLE 30 MG CAP GTB ×2 (08:23→20:57)
[2018-10-19] MEDS: ASCORBIC ACID 500 MG TAB GTB (08:23)
[2018-10-19] MEDS: POLYETHYLENE GLYCOL 17 GM PACKET GTB (08:23)
[2018-10-19] MEDS ORDERED: GLUCOSE GEL 15 GRAM TUBE BUCCAL (08:30)
[2018-10-19] MEDS ORDERED: GLUCAGON 1 MG INJ IM (08:30)
[2018-10-19] MEDS ORDERED: GLUCOSE GEL 15 GRAM TUBE PO ×2 (08:30)
[2018-10-19] MEDS ORDERED: DEXTROSE 50% 50 ML SYRINGE IV ×2 (08:30)
[2018-10-19] MEDS: ENOXAPARIN 40 MG/0.4 ML SYG SC (08:31)
[2018-10-19] MEDS: HEPARIN 5,000 UNIT/1 ML VIAL SC ×2 (08:52→21:00)
[2018-10-19] MEDS ORDERED: INSULIN GLARGINE [LANtus] 3 ML PEN SC (09:00)
[2018-10-19] MEDS ORDERED: LACTOBACILLUS ACIDOPHILUS GTB (09:00)
[2018-10-19] MEDS ORDERED: MULTIVITAMINS THERAPEUTIC TAB GTB (09:00)
[2018-10-19] MEDS ORDERED: [UNRECOGNIZED DRUG - OTHER] GTB (09:00)
[2018-10-19] MEDS: INSULIN GLARGINE [LANTus] (100 UNITS/ML) SYG SC (10:16)
[2018-10-19 10:53] LABS: LACTIC ACID 1.3 mmol/L (0.5-2.0)
[2018-10-19 10:54] LABS: ANION GAP 6 (5-13); BLOOD UREA NITROGEN 93 mg/dl (7-20); CALCIUM 7.6 mg/dl (8.4-10.2); CARBON DIOXIDE 28 mmol/L (21-31); CHLORIDE 124 mmol/L (97-110); Estimated GFR 36 mL/min (>60); GLUCOSE 284 mg/dl (70-220); SODIUM 158 mmol/L (135-144)
[2018-10-19] MEDS: DEXTROSE 5% 1,000 ML IV ×2 (11:33→20:57)
[2018-10-19 14:44] LABS: LACTIC ACID 1.4 mmol/L (0.5-2.0)
[2018-10-19] MEDS: ATORVASTATIN 10 MG TAB GTB (20:57)
[2018-10-20] MEDS: ACCU-CHEK XX (00:47)
[2018-10-20] MEDS: INSULIN ASPART [NOVOLOG] 3 ML PEN SC ×7 (00:49→23:09)
[2018-10-20 01:22] LABS: ADD UMIC YES; UR ASCORBIC ACID 40 mg/dL (NEGATIVE); UR BACTERIA MODERATE /HPF (NONE SEEN); UR BILIRUBIN (Dip) NEGATIVE (NEGATIVE); UR BLOOD (Dip) NEGATIVE (NEGATIVE); UR CLARITY CLOUDY (CLEAR); UR COLOR YELLOW (YELLOW); UR GLUCOSE (Dip) 1+ mg/dL (NEGATIVE); UR KETONES (Dip) NEGATIVE (NEGATIVE); UR LEUKOCYTE ESTERASE (Dip) TRACE Leu/ul (NEGATIVE); UR MUCUS FEW /HPF (NONE SEEN); UR NITRITE (Dip) NEGATIVE (NEGATIVE); UR RBC 6 /HPF (0-5); UR SPECIFIC GRAVITY (Dip) 1.018 (1.003-1.030); UR TOTAL PROTEIN (Dip) 2+ mg/dl (NEGATIVE); UR UROBILINOGEN (Dip) NEGATIVE (NEGATIVE); UR WBC 28 /HPF (0-5)
[2018-10-20 01:25] LABS: CREATININE,URINE RANDOM 65.77 mg/dl (20-370)
[2018-10-20 01:25] LABS: SODIUM,URINE RANDOM 20 mmol/L (30-90)
[2018-10-20] MEDS: DEXTROSE 5% 1,000 ML IV ×3 (04:30→19:30)
[2018-10-20] MEDS: LEVOTHYROXINE 25 MCG TAB GTB (04:31)
[2018-10-20 04:51] LABS: ADD MAN DIFF? NO
[2018-10-20 05:00] LABS: WHITE BLOOD COUNT 16.8 10^3/ul (4.8-10.8)
[2018-10-20 05:00] LABS: ABNORMAL IP MESSAGE 1; BASOPHIL # 0.1 10^3/ul (0.0-0.1); BASOPHILS % 0.4 % (0.0-2.0); EOSINOPHILS # 0.3 10^3/ul (0.0-0.5); EOSINOPHILS % 1.7 % (0.0-7.0); HEMATOCRIT 34.7 % (42.0-52.0); HEMOGLOBIN 10.5 g/dl (14.0-18.0); LYMPHOCYTES # 2.5 10^3/ul (0.8-2.9); MEAN CORPUSCULAR HEMOGLOBIN 29.4 pg (29.0-33.0); MEAN CORPUSCULAR HGB CONC 30.3 g/dl (32.0-37.0); MEAN CORPUSCULAR VOLUME 97.2 fl (82.0-101.0); MEAN PLATELET VOLUME 13.2 fl (7.4-10.4); MONOCYTE # 0.7 10^3/ul (0.3-0.9); MONOCYTES % 4.4 % (0.0-11.0); NEUTROPHIL # 13.1 10^3/ul (1.6-7.5); PLATELET COUNT 114 10^3/UL (140-415); POSITIVE DIFF @See below; RED BLOOD COUNT 3.57 10^6/ul (4.70-6.10)
[2018-10-20 05:32] LABS: ANION GAP 5 (5-13); BLOOD UREA NITROGEN 75 mg/dl (7-20); CALCIUM 7.9 mg/dl (8.4-10.2); CARBON DIOXIDE 28 mmol/L (21-31); CHLORIDE 122 mmol/L (97-110); CREATININE 1.55 mg/dl (0.61-1.24); Estimated GFR 49 mL/min (>60); GLUCOSE 232 mg/dl (70-220); SODIUM 155 mmol/L (135-144)
[2018-10-20 05:59] LABS: POTASSIUM 2.6 mmol/L (3.5-5.1)
[2018-10-20] MEDS: POTASSIUM CHLORIDE 50 ML IVPB ×3 (06:32→11:24)
[2018-10-20] MEDS ORDERED: POTASSIUM CHLORIDE 100 ML IVPB (07:30)
[2018-10-20] MEDS: LANSOPRAZOLE 30 MG CAP GTB ×2 (08:10→23:59)
[2018-10-20] MEDS: LEVETIRACETAM (100 MG/ML) 5ML CUP GTB ×2 (08:10→23:59)
[2018-10-20] MEDS: MULTIVITAMINS 30 ML CUP GTB (08:11)
[2018-10-20] MEDS: CEFEPIME 2GM/50 ML (PMX) 50 ML IVPB (08:11)
[2018-10-20] MEDS: ASCORBIC ACID 500 MG TAB GTB (08:11)
[2018-10-20] MEDS: LACTOBACILLUS RHAMNOSUS CAP GTB (08:11)
[2018-10-20] MEDS: POLYETHYLENE GLYCOL 17 GM PACKET GTB (08:12)
[2018-10-20] MEDS: HEPARIN 5,000 UNIT/1 ML VIAL SC (08:14)
[2018-10-20] MEDS: INSULIN GLARGINE [LANTus] (100 UNITS/ML) SYG SC (08:14)
[2018-10-20] MEDS ORDERED: VANCOMYCIN IV PER PHARMACY XX (09:00)
[2018-10-20] MEDS: VANCOMYCIN 750 MG (PMX) 250 ML IVPB (11:24)
[2018-10-20] MEDS: MUPIROCIN 2% 22 GM OINT TOP (11:30)
[2018-10-20] MEDS: DOXYCYCLINE 100 MG in SOD CHLORIDE 0.9% 250 ML IVPB (22:09)
[2018-10-20] MEDS: ATORVASTATIN 10 MG TAB GTB (23:59)
[2018-10-21] MEDS: HEPARIN 5,000 UNIT/1 ML VIAL SC ×4 (00:36→21:30)
[2018-10-21] MEDS: CEFEPIME 2GM/50 ML (PMX) 50 ML IVPB ×3 (00:55→21:22)
[2018-10-21] MEDS: INSULIN ASPART [NOVOLOG] 3 ML PEN SC ×6 (01:05→21:32)
[2018-10-21] MEDS: DEXTROSE 5% 1,000 ML IV ×3 (03:57→16:49)
[2018-10-21 05:44] LABS: ADD MAN DIFF? NO
[2018-10-21 05:53] LABS: WHITE BLOOD COUNT 11.2 10^3/ul (4.8-10.8)
[2018-10-21 05:53] LABS: BASOPHILS % 0.4 % (0.0-2.0); EOSINOPHILS # 0.3 10^3/ul (0.0-0.5); EOSINOPHILS % 2.8 % (0.0-7.0); HEMATOCRIT 33.7 % (42.0-52.0); HEMOGLOBIN 10.6 g/dl (14.0-18.0); LYMPHOCYTES # 2.3 10^3/ul (0.8-2.9); LYMPHOCYTES % 20.7 % (15.0-51.0); MEAN CORPUSCULAR HEMOGLOBIN 29.4 pg (29.0-33.0); MEAN CORPUSCULAR HGB CONC 31.5 g/dl (32.0-37.0); MEAN CORPUSCULAR VOLUME 93.4 fl (82.0-101.0); MEAN PLATELET VOLUME 12.5 fl (7.4-10.4); MONOCYTE # 0.6 10^3/ul (0.3-0.9); MONOCYTES % 5.5 % (0.0-11.0); NEUTROPHIL # 7.9 10^3/ul (1.6-7.5); NEUTROPHILS % 70.1 % (39.0-77.0); PLATELET COUNT 119 10^3/UL (140-415); RED BLOOD COUNT 3.61 10^6/ul (4.70-6.10); RED CELL DISTRIBUTION WIDTH 16.3 % (11.5-14.5)
[2018-10-21 06:05] LABS: ANION GAP 3 (5-13); BLOOD UREA NITROGEN 41 mg/dl (7-20); CALCIUM 8.1 mg/dl (8.4-10.2); CARBON DIOXIDE 29 mmol/L (21-31); CHLORIDE 116 mmol/L (97-110); CREATININE 1.13 mg/dl (0.61-1.24); Estimated GFR > 60 mL/min (>60); GLUCOSE 176 mg/dl (70-220); SODIUM 148 mmol/L (135-144)
[2018-10-21] MEDS: LEVOTHYROXINE 25 MCG TAB GTB (06:05)
[2018-10-21 06:07] LABS: PHOSPHORUS 1.7 mg/dl (2.5-4.9)
[2018-10-21 06:07] LABS: MAGNESIUM 2.2 mg/dl (1.7-2.5)
[2018-10-21 06:08] LABS: POTASSIUM 2.5 mmol/L (3.5-5.1)
[2018-10-21] MEDS: POTASSIUM CHLORIDE 20 MEQ POWDER FOR ORAL SOLN GTB ×2 (07:40→12:36)
[2018-10-21] MEDS: POLYETHYLENE GLYCOL 17 GM PACKET GTB (08:41)
[2018-10-21] MEDS: LEVETIRACETAM (100 MG/ML) 5ML CUP GTB ×2 (08:43→21:23)
[2018-10-21] MEDS: MULTIVITAMINS 30 ML CUP GTB (08:43)
[2018-10-21] MEDS: LANSOPRAZOLE 30 MG CAP GTB ×2 (08:44→21:23)
[2018-10-21] MEDS: LACTOBACILLUS RHAMNOSUS CAP GTB (08:44)
[2018-10-21] MEDS: ASCORBIC ACID 500 MG TAB GTB (08:44)
[2018-10-21] MEDS: POTASSIUM CHLORIDE 50 ML IVPB ×3 (08:48→11:19)
[2018-10-21] MEDS: INSULIN GLARGINE [LANTus] (100 UNITS/ML) SYG SC (08:51)
[2018-10-21] MEDS: MUPIROCIN 2% 22 GM OINT TOP ×3 (08:52→21:00)
[2018-10-21] MEDS: DOXYCYCLINE 100 MG in SOD CHLORIDE 0.9% 250 ML IVPB ×2 (09:00→21:29)
[2018-10-21 12:17] LABS: ANION GAP 1 (5-13); BLOOD UREA NITROGEN 34 mg/dl (7-20); CARBON DIOXIDE 31 mmol/L (21-31); CHLORIDE 114 mmol/L (97-110); CREATININE 1.06 mg/dl (0.61-1.24); Estimated GFR > 60 mL/min (>60); GLUCOSE 199 mg/dl (70-220); POTASSIUM 3.2 mmol/L (3.5-5.1); SODIUM 146 mmol/L (135-144)
[2018-10-21] MEDS: POTASSIUM PHOSPHATE 30 MM in SOD CHLORIDE 0.9% 250 ML IVPB (12:35)
[2018-10-21] MEDS ORDERED: MUPIROCIN 2% 22 GM OINT TOP (21:00)
[2018-10-21] MEDS: ATORVASTATIN 10 MG TAB GTB (21:23)
[2018-10-21] MEDS: NITROFURANTOIN (SR) 100 MG CAP PO (21:23)
[2018-10-22] MEDS: INSULIN ASPART [NOVOLOG] 3 ML PEN SC ×6 (01:34→21:00)
[2018-10-22] MEDS: DEXTROSE 5% 1,000 ML IV (03:11)
[2018-10-22] MEDS: LEVOTHYROXINE 25 MCG TAB GTB (05:32)
[2018-10-22 06:44] LABS: ADD MAN DIFF? NO
[2018-10-22 06:50] LABS: BASOPHILS % 0.2 % (0.0-2.0); EOSINOPHILS # 0.3 10^3/ul (0.0-0.5); EOSINOPHILS % 3.8 % (0.0-7.0); HEMATOCRIT 31.3 % (42.0-52.0); HEMOGLOBIN 10.3 g/dl (14.0-18.0); LYMPHOCYTES # 2.2 10^3/ul (0.8-2.9); LYMPHOCYTES % 27.2 % (15.0-51.0); MEAN CORPUSCULAR HGB CONC 32.9 g/dl (32.0-37.0); MEAN CORPUSCULAR VOLUME 91.3 fl (82.0-101.0); MEAN PLATELET VOLUME 12.3 fl (7.4-10.4); MONOCYTE # 0.5 10^3/ul (0.3-0.9); MONOCYTES % 6.6 % (0.0-11.0); NEUTROPHILS % 61.6 % (39.0-77.0); PLATELET COUNT 117 10^3/UL (140-415); RED BLOOD COUNT 3.43 10^6/ul (4.70-6.10); RED CELL DISTRIBUTION WIDTH 15.5 % (11.5-14.5)
[2018-10-22 06:50] LABS: WHITE BLOOD COUNT 8.2 10^3/ul (4.8-10.8)
[2018-10-22 07:23] LABS: ANION GAP 4 (5-13); BLOOD UREA NITROGEN 24 mg/dl (7-20); CALCIUM 7.9 mg/dl (8.4-10.2); CARBON DIOXIDE 30 mmol/L (21-31); CHLORIDE 108 mmol/L (97-110); CREATININE 0.97 mg/dl (0.61-1.24); Estimated GFR > 60 mL/min (>60); GLUCOSE 205 mg/dl (70-220); SODIUM 142 mmol/L (135-144)
[2018-10-22] MEDS: POLYETHYLENE GLYCOL 17 GM PACKET GTB (07:32)
[2018-10-22] MEDS: CEFEPIME 2GM/50 ML (PMX) 50 ML IVPB ×2 (07:56→21:08)
[2018-10-22] MEDS: LACTOBACILLUS RHAMNOSUS CAP GTB (07:59)
[2018-10-22] MEDS: LEVETIRACETAM (100 MG/ML) 5ML CUP GTB ×2 (07:59→21:08)
[2018-10-22] MEDS: NITROFURANTOIN (SR) 100 MG CAP PO ×2 (07:59→21:09)
[2018-10-22] MEDS: MULTIVITAMINS 30 ML CUP GTB (07:59)
[2018-10-22] MEDS: LANSOPRAZOLE 30 MG CAP GTB ×2 (08:00→21:08)
[2018-10-22] MEDS: ASCORBIC ACID 500 MG TAB GTB (08:01)
[2018-10-22] MEDS: INSULIN GLARGINE [LANTus] (100 UNITS/ML) SYG SC (08:02)
[2018-10-22] MEDS: HEPARIN 5,000 UNIT/1 ML VIAL SC ×2 (08:02→21:33)
[2018-10-22] MEDS: MUPIROCIN 2% 22 GM OINT TOP ×2 (08:05→21:42)
[2018-10-22] MEDS: POTASSIUM CHLORIDE 20 MEQ POWDER FOR ORAL SOLN GTB (09:10)
[2018-10-22] MEDS: DOXYCYCLINE 100 MG in SOD CHLORIDE 0.9% 250 ML IVPB ×2 (09:11→21:42)
[2018-10-22] MEDS: POTASSIUM CHLORIDE 50 ML IVPB ×3 (10:31→13:34)
[2018-10-22] MEDS: NYSTATIN SUSP 5 ML CUP PO ×2 (17:17→21:08)
[2018-10-22] MEDS: ATORVASTATIN 10 MG TAB GTB (21:09)
[2018-10-23] MEDS: INSULIN ASPART [NOVOLOG] 3 ML PEN SC ×4 (01:00→12:19)
[2018-10-23] MEDS: LORAZEPAM 2 MG INJ IV (05:08)
[2018-10-23 06:17] LABS: ADD MAN DIFF? NO
[2018-10-23 06:20] LABS: BASOPHIL # 0.1 10^3/ul (0.0-0.1); BASOPHILS % 0.5 % (0.0-2.0); EOSINOPHILS # 0.3 10^3/ul (0.0-0.5); EOSINOPHILS % 3.5 % (0.0-7.0); HEMATOCRIT 34.8 % (42.0-52.0); HEMOGLOBIN 11.5 g/dl (14.0-18.0); LYMPHOCYTES # 2.8 10^3/ul (0.8-2.9); LYMPHOCYTES % 28.8 % (15.0-51.0); MEAN CORPUSCULAR HEMOGLOBIN 29.8 pg (29.0-33.0); MEAN CORPUSCULAR VOLUME 90.2 fl (82.0-101.0); MEAN PLATELET VOLUME 12.2 fl (7.4-10.4); MONOCYTE # 0.5 10^3/ul (0.3-0.9); MONOCYTES % 5.5 % (0.0-11.0); NEUTROPHIL # 5.9 10^3/ul (1.6-7.5); NEUTROPHILS % 60.8 % (39.0-77.0); PLATELET COUNT 153 10^3/UL (140-415); RED BLOOD COUNT 3.86 10^6/ul (4.70-6.10); RED CELL DISTRIBUTION WIDTH 15.4 % (11.5-14.5)
[2018-10-23 06:20] LABS: WHITE BLOOD COUNT 9.7 10^3/ul (4.8-10.8)
[2018-10-23] MEDS: LEVOTHYROXINE 25 MCG TAB GTB (06:22)
[2018-10-23 06:40] LABS: ANION GAP 5 (5-13); BLOOD UREA NITROGEN 23 mg/dl (7-20); CALCIUM 8.4 mg/dl (8.4-10.2); CARBON DIOXIDE 28 mmol/L (21-31); CHLORIDE 109 mmol/L (97-110); CREATININE 1.01 mg/dl (0.61-1.24); Estimated GFR > 60 mL/min (>60); GLUCOSE 144 mg/dl (70-220); POTASSIUM 3.7 mmol/L (3.5-5.1); SODIUM 142 mmol/L (135-144)
[2018-10-23] MEDS: NITROFURANTOIN (SR) 100 MG CAP PO (09:40)
[2018-10-23] MEDS: NYSTATIN SUSP 5 ML CUP PO ×2 (09:40→12:09)
[2018-10-23] MEDS: LACTOBACILLUS RHAMNOSUS CAP GTB (09:40)
[2018-10-23] MEDS: LEVETIRACETAM (100 MG/ML) 5ML CUP GTB (09:40)
[2018-10-23] MEDS: POLYETHYLENE GLYCOL 17 GM PACKET GTB (09:41)
[2018-10-23] MEDS: MULTIVITAMINS 30 ML CUP GTB (09:41)
[2018-10-23] MEDS: MUPIROCIN 2% 22 GM OINT TOP (09:41)
[2018-10-23] MEDS: LANSOPRAZOLE 30 MG CAP GTB (09:42)
[2018-10-23] MEDS: ASCORBIC ACID 500 MG TAB GTB (09:42)
[2018-10-23] MEDS: INSULIN GLARGINE [LANTus] (100 UNITS/ML) SYG SC (09:50)
[2018-10-23] MEDS: HEPARIN 5,000 UNIT/1 ML VIAL SC (09:51)
[2018-10-23] MEDS: CEFEPIME 2GM/50 ML (PMX) 50 ML IVPB (09:55)
[2018-10-23] MEDS: DOXYCYCLINE 100 MG in SOD CHLORIDE 0.9% 250 ML IVPB (09:57)
[2018-10-23] MEDS ORDERED: DOXYCYCLINE 100 MG TAB PO (21:00)
[2018-10-25] MEDS ORDERED: ERGOCALCIFEROL 50,000 UNIT CAP GTB (09:00)
== END 2018-10-23 18:27 | DRG 871 ==
LOC: 6WM 10-20 15:06 → E/R 13:13 → ICU 16:38
PROC: 06HM33Z Insertion of Infusion Device into Right Femoral Vein, Percutaneous Approach (ICD-10-PCS; principal; 2018-10-18)
PROC: B54BZZA Ultrasonography of Right Lower Extremity Veins, Guidance (ICD-10-PCS; 2018-10-18)
DX: A41.9 Sepsis, unspecified organism (principal); R65.21 Severe sepsis with septic shock; R53.2 Functional quadriplegia; G93.40 Encephalopathy, unspecified; E87.2 Acidosis; N17.9 Acute kidney failure, unspecified; E87.0 Hyperosmolality and hypernatremia; I69.351 Hemiplegia and hemiparesis following cerebral infarction affecting right dominant side; N39.0 Urinary tract infection, site not specified; E11.65 Type 2 diabetes mellitus with hyperglycemia; L89.90 Pressure ulcer of unspecified site, unspecified stage; I10 Essential (primary) hypertension; E03.9 Hypothyroidism, unspecified; D63.8 Anemia in other chronic diseases classified elsewhere; Z79.4 Long term (current) use of insulin
CPT/HCPCS: 36415; 36600; 71045; 76775; 76937; 80048; 80053; 80061; 81001; 82803; 82962; 83036; 83605; 83735; 84100; 84155; 84300; 84439; 84443; 84484; 85025; 85610; 85730; 87040-91; 87081; 87086; 89190; 92610; 93005; 96374; 96375; 97162; 97165; 99285-25